=== PATIENT | male | born 1955 | race Caucasian/White ===

== ENCOUNTER 2019-12-03 13:53 | Outpatient (CLI) | payer MEDICARE ==
[2019-12-03 14:26] LABS: Prothrombin Time 13.6 sec (12.0-14.7)
== END 2019-12-03 13:54 | disposition home or self-care (01) ==
LOC: MADLAB 13:53
PROVIDERS: ATTEND Internal Medicine Hematology & Oncology
DX: I48.91 Unspecified atrial fibrillation (principal)
CPT/HCPCS: 36415; 85610

== ENCOUNTER 2019-12-10 12:56 | Outpatient (CLI) | payer MEDICARE ==
[2019-12-10 13:23] LABS: Prothrombin Time 22.5 sec (12.0-14.7)
== END 2019-12-10 12:57 | disposition home or self-care (01) ==
LOC: MADLAB 12:56
PROVIDERS: ATTEND Internal Medicine Hematology & Oncology
DX: I48.91 Unspecified atrial fibrillation (principal)
CPT/HCPCS: 36415; 85610

== ENCOUNTER 2019-12-17 14:22 | Outpatient (CLI) | payer MEDICARE ==
[2019-12-17 14:51] LABS: Prothrombin Time 22.6 sec (12.0-14.7)
== END 2019-12-17 14:23 | disposition home or self-care (01) ==
LOC: MADLABBHPM 14:22
PROVIDERS: ATTEND Internal Medicine Hematology & Oncology
DX: I48.91 Unspecified atrial fibrillation (principal)
CPT/HCPCS: 36415; 85610

== ENCOUNTER 2019-12-24 13:28 | Outpatient (CLI) | payer MEDICARE ==
[2019-12-24 13:51] LABS: INR-International Normal Ratio 1.6; Prothrombin Time 19.1 sec (12.0-14.7)
== END 2019-12-24 13:29 | disposition home or self-care (01) ==
LOC: MADLAB 13:28
PROVIDERS: ATTEND Internal Medicine Hematology & Oncology
DX: I48.91 Unspecified atrial fibrillation (principal)
CPT/HCPCS: 36415; 85610

== ENCOUNTER 2020-01-07 11:39 | Outpatient (CLI) | payer MEDICARE ==
[2020-01-07 12:10] LABS: INR-International Normal Ratio 1.4; Prothrombin Time 17.2 sec (12.0-14.7)
== END 2020-01-07 11:40 | disposition home or self-care (01) ==
LOC: MADLAB 11:39
PROVIDERS: ATTEND Internal Medicine Hematology & Oncology
DX: I48.91 Unspecified atrial fibrillation (principal)
CPT/HCPCS: 36415; 85610

== ENCOUNTER 2020-01-21 13:24 | Outpatient (CLI) | payer MEDICARE ==
[2020-01-21 14:02] LABS: INR-International Normal Ratio 2.1; Prothrombin Time 23.1 sec (12.0-14.7)
== END 2020-01-21 13:25 | disposition home or self-care (01) ==
LOC: MADLAB 13:24
PROVIDERS: ATTEND Internal Medicine Hematology & Oncology
DX: I48.91 Unspecified atrial fibrillation (principal)
CPT/HCPCS: 36415; 85610

== ENCOUNTER 2020-02-04 14:04 | Outpatient (CLI) | payer MEDICARE ==
[2020-02-04 14:36] LABS: INR-International Normal Ratio 1.7; Prothrombin Time 19.8 sec (12.0-14.7)
== END 2020-02-04 14:05 | disposition home or self-care (01) ==
LOC: MADLAB 14:04
PROVIDERS: ATTEND Internal Medicine Hematology & Oncology
DX: I48.91 Unspecified atrial fibrillation (principal)
CPT/HCPCS: 36415; 85610

== ENCOUNTER 2020-02-18 13:49 | Outpatient (CLI) | payer MEDICARE ==
[2020-02-18 14:17] LABS: INR-International Normal Ratio 2.2; Prothrombin Time 24.4 sec (12.0-14.7)
== END 2020-02-18 13:50 | disposition home or self-care (01) ==
LOC: MADLAB 13:49
PROVIDERS: ATTEND Internal Medicine Hematology & Oncology
DX: I48.91 Unspecified atrial fibrillation (principal)
CPT/HCPCS: 36415; 85610

== ENCOUNTER 2020-02-28 08:58 | Emergency (ER) | payer MEDICARE ==
[~2020-02-28 08:58] MED LIST: Norepinephrine 4 MG/4 ML VIAL ONE
[2020-02-28 10:24] LABS: ALT (SGPT) 47 U/L (8-55); AST (SGOT) 47 U/L (5-34); Albumin 3.8 g/dL (3.4-4.8); Alkaline Phosphatase 63 U/L (40-110); Anion Gap 19 mmol/L (10-20); BUN (Urea Nitrogen) 23 mg/dL (8.4-25.7); Bilirubin, Total 1.2 mg/dL (0.2-1.2); Calc. Creatinine Clearance 0 mL/min (70-130); Calcium 8.7 mg/dL (7.8-10.44); Carbon Dioxide 20 mmol/L (23-31); Chloride 98 mmol/L (98-107); Estimated GFR-MDRD 50; Globulin 3.3 g/dL (2.4-3.5); Glucose 216 mg/dL (80-115); Potassium 3.8 mmol/L (3.5-5.1); Protein, Total 7.1 g/dL (5.8-8.1); Sodium 133 mmol/L (136-145)
[2020-02-28 10:31] LABS: Hemoglobin 14.9 g/dL (14.0-18.0); Mean Corpuscular HGB CONC 31.9 g/dL (32.0-36.0); Mean Corpuscular Hemoglobin 29.9 pg (27.0-31.0); Mean Corpuscular Volume 93.6 fL (78.0-98.0); Mean Platelet Volume 6.5 fL (7.4-10.4); Platelet Count 221 thou/uL (130-400); RBC Distribution Width 12.5 % (11.5-14.5); Red Blood Cell (RBC) Count 4.99 mill/uL (4.70-6.10)
[2020-02-28 10:32] LABS: Band 11 % (5-11); Lymphocytes 6 % (21-51); MDiff Complete? YES; Monocytes 1 % (0-10); Neutrophil 78 % (42-75); Platelet Morphology Comment Appears Adequate; RBC Morphology Normal; Reactive Lymphocytes 4 % (0-10)
[2020-02-28] MEDS ORDERED: Sodium Chloride 0.9% 2,000 ML ONE (10:41)
[2020-02-28] MEDS ORDERED: Cefepime 2 GM VIAL ONE (10:41)
[2020-02-28] MEDS ORDERED: Sodium Chloride 0.9% 250 ML 500 ML ONE (10:43)
[2020-02-28] MEDS ORDERED: Sodium Chloride 0.9% 100 ML ONE (10:43)
[2020-02-28] MEDS ORDERED: Lactated Ringer's 1,000 ML ONE (12:10)
[2020-02-28] MEDS ORDERED: Norepinephrine 4 MG/4 ML VIAL ONE (13:03)
[2020-02-28] MEDS ORDERED: Lidocaine 1% w/Epinephrine 1:100K 20 ML VIAL ONE (13:21)
== END 2020-02-28 13:43 | disposition short-term general hospital (02) ==
LOC: MADERS 08:58
DX: A41.9 Sepsis, unspecified organism (principal); L03.115 Cellulitis of right lower limb; E66.9 Obesity, unspecified; I48.91 Unspecified atrial fibrillation; E11.40 Type 2 diabetes mellitus with diabetic neuropathy, unspecified; E78.5 Hyperlipidemia, unspecified; I10 Essential (primary) hypertension; Z79.01 Long term (current) use of anticoagulants; Z79.82 Long term (current) use of aspirin; Z79.84 Long term (current) use of oral hypoglycemic drugs; Z79.899 Other long term (current) drug therapy
CPT/HCPCS: 36415; 36416; 36556; 80053; 83605; 84484; 85025; 86140; 87040; 93005; 96365; 96366; 96367; 96375; 99292; J0692; J3370; J3490; J7050; J7070; J7120

== ENCOUNTER 2020-03-08 13:34 | Outpatient (CLI) | payer MEDICARE ==
[2020-03-08 13:44] LABS: #Basophils 0.1 thou/uL (0.0-0.2); #Eosinphils 0.2 thou/uL (0.0-0.7); #Lymphocytes 2.3 thou/uL (1.20-3.40); #Monocytes 0.8 thou/uL (0.11-0.59); #Neutrophils 8.6 thou/uL (1.40-6.50); %Basophils 0.7 % (0.0-1.0); %Eosinophils 1.7 % (0.0-10.0); %Lymphocytes 19.3 % (21.0-51.0); %Monocytes 6.5 % (0.0-10.0); %Neutrophils 71.9 % (42.0-75.0); Hemoglobin 12.8 g/dL (14.0-18.0); Mean Corpuscular Hemoglobin 29.7 pg (27.0-31.0); Mean Corpuscular Volume 95.8 fL (78.0-98.0); Platelet Count 384 thou/uL (130-400); RBC Distribution Width 12.8 % (11.5-14.5); Red Blood Cell (RBC) Count 4.32 mill/uL (4.70-6.10); White Blood Cell (WBC) Count 11.9 thou/uL (4.8-10.8)
[2020-03-08 13:56] LABS: ALT (SGPT) 24 U/L (8-55); AST (SGOT) 22 U/L (5-34); Alkaline Phosphatase 122 U/L (40-110); Anion Gap 12 mmol/L (10-20); BUN (Urea Nitrogen) 19 mg/dL (8.4-25.7); Bilirubin, Total 0.6 mg/dL (0.2-1.2); CRP (Inflammatory) 2.03 mg/dL (= or < 0.5); Calc. Creatinine Clearance 0 mL/min (70-130); Calcium 8.2 mg/dL (7.8-10.44); Carbon Dioxide 28 mmol/L (23-31); Chloride 101 mmol/L (98-107); Estimated GFR-MDRD 90; Glucose 135 mg/dL (80-115); Potassium 4.2 mmol/L (3.5-5.1); Sodium 137 mmol/L (136-145)
== END 2020-03-08 13:35 | disposition home or self-care (01) ==
LOC: MADLABSP 13:34
DX: L03.116 Cellulitis of left lower limb (principal); I48.91 Unspecified atrial fibrillation
CPT/HCPCS: 80053; 85025; 86140

== ENCOUNTER 2020-03-10 13:37 | Outpatient (CLI) | payer MEDICARE ==
[2020-03-10 14:01] LABS: INR-International Normal Ratio 1.8; Prothrombin Time 20.7 sec (12.0-14.7)
== END 2020-03-10 13:38 | disposition home or self-care (01) ==
LOC: MADLABSP 13:37
PROVIDERS: ATTEND Student in an Organized Health Care Education/Training Program
DX: Z47.81 Encounter for orthopedic aftercare following surgical amputation (principal)
CPT/HCPCS: 85610

== ENCOUNTER 2020-03-15 16:57 | Outpatient (CLI) | payer MEDICARE ==
[2020-03-15 17:04] LABS: #Basophils 0.1 thou/uL (0.0-0.2); #Eosinphils 0.2 thou/uL (0.0-0.7); #Lymphocytes 2.7 thou/uL (1.20-3.40); #Monocytes 0.4 thou/uL (0.11-0.59); #Neutrophils 5.5 thou/uL (1.40-6.50); %Eosinophils 2.5 % (0.0-10.0); %Lymphocytes 30.4 % (21.0-51.0); %Monocytes 4.2 % (0.0-10.0); %Neutrophils 61.9 % (42.0-75.0); Hemoglobin 14.1 g/dL (14.0-18.0); Mean Corpuscular HGB CONC 30.7 g/dL (32.0-36.0); Mean Corpuscular Hemoglobin 29.4 pg (27.0-31.0); Mean Corpuscular Volume 95.9 fL (78.0-98.0); Mean Platelet Volume 6.2 fL (7.4-10.4); Platelet Count 467 thou/uL (130-400); RBC Distribution Width 13.1 % (11.5-14.5); Red Blood Cell (RBC) Count 4.78 mill/uL (4.70-6.10); White Blood Cell (WBC) Count 8.9 thou/uL (4.8-10.8)
[2020-03-15 17:18] LABS: ALT (SGPT) 27 U/L (8-55); AST (SGOT) 52 U/L (5-34); Albumin 3.8 g/dL (3.4-4.8); Alkaline Phosphatase 117 U/L (40-110); Anion Gap 19 mmol/L (10-20); BUN (Urea Nitrogen) 28 mg/dL (8.4-25.7); Bilirubin, Total 0.3 mg/dL (0.2-1.2); CRP (Inflammatory) 0.69 mg/dL (= or < 0.5); Calc. Creatinine Clearance 0 mL/min (70-130); Calcium 9.2 mg/dL (7.8-10.44); Carbon Dioxide 26 mmol/L (23-31); Chloride 100 mmol/L (98-107); Globulin 3.8 g/dL (2.4-3.5); Glucose 101 mg/dL (80-115); Potassium 4.7 mmol/L (3.5-5.1); Protein, Total 7.6 g/dL (5.8-8.1); Sodium 140 mmol/L (136-145)
== END 2020-03-15 16:58 | disposition home or self-care (01) ==
LOC: MADLAB 16:57
PROVIDERS: ATTEND Nurse Practitioner Family
DX: L03.116 Cellulitis of left lower limb (principal); I48.91 Unspecified atrial fibrillation
CPT/HCPCS: 80053; 85025; 86140

== ENCOUNTER 2020-03-22 19:44 | Outpatient (CLI) | payer MEDICARE ==
[2020-03-22 21:28] LABS: #Basophils 0.1 thou/uL (0.0-0.2); #Eosinphils 0.5 thou/uL (0.0-0.7); #Lymphocytes 2.4 thou/uL (1.20-3.40); #Monocytes 0.7 thou/uL (0.11-0.59); #Neutrophils 3.5 thou/uL (1.40-6.50); %Basophils 1.6 % (0.0-1.0); %Eosinophils 6.6 % (0.0-10.0); %Lymphocytes 33.5 % (21.0-51.0); %Monocytes 9.2 % (0.0-10.0); Hemoglobin 15.1 g/dL (14.0-18.0); Mean Corpuscular HGB CONC 30.8 g/dL (32.0-36.0); Mean Corpuscular Hemoglobin 29.5 pg (27.0-31.0); Mean Corpuscular Volume 95.8 fL (78.0-98.0); Mean Platelet Volume 6.2 fL (7.4-10.4); Platelet Count 303 thou/uL (130-400); RBC Distribution Width 12.7 % (11.5-14.5); Red Blood Cell (RBC) Count 5.13 mill/uL (4.70-6.10); White Blood Cell (WBC) Count 7.1 thou/uL (4.8-10.8)
[2020-03-22 21:34] LABS: ALT (SGPT) 18 U/L (8-55); AST (SGOT) 37 U/L (5-34); Albumin 4.1 g/dL (3.4-4.8); Alkaline Phosphatase 99 U/L (40-110); Anion Gap 18 mmol/L (10-20); BUN (Urea Nitrogen) 31 mg/dL (8.4-25.7); Bilirubin, Total 0.3 mg/dL (0.2-1.2); CRP (Inflammatory) Less than 0.50 mg/dL (= or < 0.5); Calc. Creatinine Clearance 0 mL/min (70-130); Calcium 9.4 mg/dL (7.8-10.44); Carbon Dioxide 23 mmol/L (23-31); Chloride 99 mmol/L (98-107); Estimated GFR-MDRD 76; Glucose 136 mg/dL (80-115); Potassium 4.4 mmol/L (3.5-5.1); Protein, Total 8.1 g/dL (5.8-8.1); Sodium 136 mmol/L (136-145)
== END 2020-03-22 19:45 | disposition home or self-care (01) ==
LOC: MADLAB 19:44
PROVIDERS: ATTEND Internal Medicine Hematology & Oncology
DX: L03.116 Cellulitis of left lower limb (principal)
CPT/HCPCS: 80053; 85025; 86140

== ENCOUNTER 2020-03-24 15:12 | Outpatient (CLI) | payer MEDICARE ==
[2020-03-24 15:23] LABS: INR-International Normal Ratio 1.3; Prothrombin Time 16.4 sec (12.0-14.7)
== END 2020-03-24 15:13 | disposition home or self-care (01) ==
LOC: MADLAB 15:12
DX: L03.116 Cellulitis of left lower limb (principal); I48.91 Unspecified atrial fibrillation
CPT/HCPCS: 85610

== ENCOUNTER 2020-03-31 13:20 | Outpatient (CLI) | payer MEDICARE ==
[2020-03-31 13:31] LABS: INR-International Normal Ratio 1.9; Prothrombin Time 21.6 sec (12.0-14.7)
== END 2020-03-31 13:21 | disposition home or self-care (01) ==
LOC: MADLABSP 13:20
PROVIDERS: ATTEND Internal Medicine
DX: L03.116 Cellulitis of left lower limb (principal)
CPT/HCPCS: 85610

== ENCOUNTER 2020-04-14 14:42 | Outpatient (CLI) | payer MEDICARE ==
[2020-04-14 14:58] LABS: INR-International Normal Ratio 2.5; Prothrombin Time 26.8 sec (12.0-14.7)
== END 2020-04-14 14:43 | disposition home or self-care (01) ==
LOC: MADLAB 14:42
PROVIDERS: ATTEND Internal Medicine
DX: L03.116 Cellulitis of left lower limb (principal); I48.91 Unspecified atrial fibrillation
CPT/HCPCS: 85610

== ENCOUNTER 2020-04-22 18:49 | Emergency (ER) | payer MEDICARE ==
[2020-04-22] MEDS ORDERED: Lidocaine 1% 20 ML MDV ONE ×2 (19:33→19:41)
[2020-04-22] MEDS ORDERED: Lidocaine 1% w/Epinephrine 1:100K 20 ML VIAL ONE (19:33)
[2020-04-22] MEDS ORDERED: Boostrix 0.5 ML VIAL ONE (20:06)
[2020-04-22] MEDS ORDERED: Sterile Water Irrigation 250 ML BOT ONE (20:51)
== END 2020-04-22 20:51 | disposition home or self-care (01) ==
LOC: MADERS 18:49
DX: S01.111A Laceration without foreign body of right eyelid and periocular area, initial encounter (principal); E66.9 Obesity, unspecified; I48.91 Unspecified atrial fibrillation; E78.5 Hyperlipidemia, unspecified; I10 Essential (primary) hypertension; E11.9 Type 2 diabetes mellitus without complications; Z23 Encounter for immunization; Z79.84 Long term (current) use of oral hypoglycemic drugs; Z79.01 Long term (current) use of anticoagulants; Z79.899 Other long term (current) drug therapy; W22.8XXA Striking against or struck by other objects, initial encounter
CPT/HCPCS: 12013; 90471; 90715

== ENCOUNTER 2020-04-28 13:27 | Outpatient (CLI) | payer MEDICARE ==
[2020-04-28 13:47] LABS: INR-International Normal Ratio 2.1; Prothrombin Time 24.4 sec (12.0-14.7)
== END 2020-04-28 13:28 | disposition home or self-care (01) ==
LOC: MADLAB 13:27
PROVIDERS: ATTEND Nurse Practitioner Acute Care
DX: I48.91 Unspecified atrial fibrillation (principal)
CPT/HCPCS: 36415; 85610

== ENCOUNTER 2020-05-19 13:12 | Outpatient (CLI) | payer MEDICARE ==
[2020-05-19 13:41] LABS: INR-International Normal Ratio 2.3; Prothrombin Time 25.4 sec (12.0-14.7)
== END 2020-05-19 13:13 | disposition home or self-care (01) ==
LOC: MADLAB 13:12
PROVIDERS: ATTEND Nurse Practitioner Acute Care
DX: I48.21 Permanent atrial fibrillation (principal)
CPT/HCPCS: 36415; 85610

== ENCOUNTER 2020-06-16 13:20 | Outpatient (CLI) | payer MEDICARE ==
[2020-06-16 13:46] LABS: INR-International Normal Ratio 1.9; Prothrombin Time 22.4 sec (12.0-14.7)
== END 2020-06-16 13:21 | disposition home or self-care (01) ==
LOC: MADLAB 13:20
PROVIDERS: ATTEND Internal Medicine Hematology & Oncology
DX: I48.91 Unspecified atrial fibrillation (principal)
CPT/HCPCS: 36415; 85610

== ENCOUNTER 2020-07-07 14:54 | Outpatient (CLI) | payer MEDICARE ==
[2020-07-07 15:14] LABS: INR-International Normal Ratio 1.7
== END 2020-07-07 14:55 | disposition home or self-care (01) ==
LOC: MADLAB 14:54
PROVIDERS: ATTEND Nurse Practitioner Acute Care
DX: I48.91 Unspecified atrial fibrillation (principal)
CPT/HCPCS: 36415; 85610

== ENCOUNTER 2020-08-09 14:10 | Outpatient (CLI) | payer MEDICARE ==
[2020-08-09 14:45] LABS: Prothrombin Time 22.9 sec (12.0-14.7)
== END 2020-08-09 14:11 | disposition home or self-care (01) ==
LOC: MADLAB 14:10
DX: I48.91 Unspecified atrial fibrillation (principal)
CPT/HCPCS: 36415; 85610

== ENCOUNTER 2020-08-23 14:28 | Outpatient (CLI) | payer MEDICARE ==
[2020-08-23 15:01] LABS: INR-International Normal Ratio 1.8; Prothrombin Time 21.5 sec (12.0-14.7)
== END 2020-08-23 14:29 | disposition home or self-care (01) ==
LOC: MADLAB 14:28
PROVIDERS: ATTEND Nurse Practitioner Acute Care
DX: I48.91 Unspecified atrial fibrillation (principal)
CPT/HCPCS: 85610

== ENCOUNTER 2020-09-06 11:28 | Outpatient (CLI) | payer MEDICARE ==
[2020-09-06 11:59] LABS: #Basophils 0.1 thou/uL (0.0-0.2); #Eosinphils 0.4 thou/uL (0.0-0.7); #Lymphocytes 1.9 thou/uL (1.20-3.40); #Monocytes 0.5 thou/uL (0.11-0.59); #Neutrophils 3.1 thou/uL (1.40-6.50); %Basophils 2.2 % (0.0-1.0); %Eosinophils 6.6 % (0.0-10.0); %Lymphocytes 30.7 % (21.0-51.0); %Monocytes 8.6 % (0.0-10.0); %Neutrophils 51.9 % (42.0-75.0); Hemoglobin 16.6 g/dL (14.0-18.0); Mean Corpuscular HGB CONC 31.4 g/dL (32.0-36.0); Mean Corpuscular Hemoglobin 29.6 pg (27.0-31.0); Mean Corpuscular Volume 94.4 fL (78.0-98.0); Mean Platelet Volume 6.8 fL (7.4-10.4); Platelet Count 194 thou/uL (130-400); White Blood Cell (WBC) Count 6.1 thou/uL (4.8-10.8)
[2020-09-06 12:03] LABS: INR-International Normal Ratio 2.2; Prothrombin Time 24.7 sec (12.0-14.7)
[2020-09-06 12:14] LABS: ALT (SGPT) 27 U/L (8-55); AST (SGOT) 27 U/L (5-34); Alkaline Phosphatase 83 U/L (40-110); Anion Gap 13 mmol/L (10-20); BUN (Urea Nitrogen) 21 mg/dL (8.4-25.7); Bilirubin, Total 0.6 mg/dL (0.2-1.2); Calc. Creatinine Clearance 0 mL/min (70-130); Calcium 9.3 mg/dL (7.8-10.44); Carbon Dioxide 28 mmol/L (23-31); Cardiac Risk 3.1 (Less than 4.5); Chloride 105 mmol/L (98-107); Cholesterol 147 mg/dl (< 200 Desired); Globulin 3.4 g/dL (2.4-3.5); Glucose 133 mg/dL (80-115); HDL Cholesterol 48 mg/dL (>60 Neg Risk); LDL Cholesterol, Calculated 81 mg/dL; Potassium 4.1 mmol/L (3.5-5.1); Protein, Total 7.4 g/dL (5.8-8.1); Sodium 142 mmol/L (136-145); Triglycerides 91 mg/dL (Less than 150)
[2020-09-06 16:55] LABS: Hemoglobin A1c 6.9 % (4.0-6.0)
== END 2020-09-06 11:29 | disposition home or self-care (01) ==
LOC: MADLAB 11:28
PROVIDERS: ATTEND Nurse Practitioner Acute Care
DX: I48.91 Unspecified atrial fibrillation (principal); I10 Essential (primary) hypertension; Z79.4 Long term (current) use of insulin
CPT/HCPCS: 36415; 80053; 80061; 83036; 85025; 85610

== ENCOUNTER 2020-10-13 17:58 | Outpatient (CLI) | payer MEDICARE ==
[2020-10-13 18:06] LABS: INR-International Normal Ratio 2.5; Prothrombin Time 27.2 sec (12.0-14.7)
== END 2020-10-13 17:59 | disposition home or self-care (01) ==
LOC: MADLAB 17:58
PROVIDERS: ATTEND Nurse Practitioner Acute Care
DX: I48.91 Unspecified atrial fibrillation (principal)
CPT/HCPCS: 36415; 85610

== ENCOUNTER 2020-11-10 13:35 | Outpatient (CLI) | payer MEDICARE ==
[2020-11-10 13:58] LABS: INR-International Normal Ratio 1.7; Prothrombin Time 19.9 sec (12.0-14.7)
== END 2020-11-10 13:36 | disposition home or self-care (01) ==
LOC: MADLAB 13:35
PROVIDERS: ATTEND Nurse Practitioner Acute Care
DX: I48.91 Unspecified atrial fibrillation (principal)
CPT/HCPCS: 85610

== ENCOUNTER 2020-11-24 14:05 | Outpatient (CLI) | payer MEDICARE ==
[2020-11-24 14:26] LABS: INR-International Normal Ratio 1.7; Prothrombin Time 20.7 sec (12.0-14.7)
== END 2020-11-24 14:06 | disposition home or self-care (01) ==
LOC: MADLAB 14:05
PROVIDERS: ATTEND Nurse Practitioner Acute Care
DX: I48.91 Unspecified atrial fibrillation (principal)
CPT/HCPCS: 36415; 85610

== ENCOUNTER 2020-12-15 13:14 | Outpatient (CLI) | payer MEDICARE ==
[2020-12-15 13:37] LABS: INR-International Normal Ratio 1.6; Prothrombin Time 19.5 sec (12.0-14.7)
== END 2020-12-15 13:15 | disposition home or self-care (01) ==
LOC: MADLAB 13:14
PROVIDERS: ATTEND Internal Medicine Hematology & Oncology
DX: I48.91 Unspecified atrial fibrillation (principal)
CPT/HCPCS: 36415; 85610

== ENCOUNTER 2020-12-27 10:23 | Outpatient (CLI) | payer MEDICARE ==
[2020-12-27 10:46] LABS: INR-International Normal Ratio 2.1; Prothrombin Time 23.7 sec (12.0-14.7)
== END 2020-12-27 10:24 | disposition home or self-care (01) ==
LOC: MADLAB 10:23
PROVIDERS: ATTEND Internal Medicine Hematology & Oncology
DX: I48.91 Unspecified atrial fibrillation (principal)
CPT/HCPCS: 36415; 85610

== ENCOUNTER 2021-01-12 14:19 | Outpatient (CLI) | payer MEDICARE ==
[2021-01-12 14:48] LABS: INR-International Normal Ratio 2.6; Prothrombin Time 28.6 sec (12.0-14.7)
== END 2021-01-12 14:20 | disposition home or self-care (01) ==
LOC: MADLAB 14:19
PROVIDERS: ATTEND Internal Medicine Hematology & Oncology
DX: I48.91 Unspecified atrial fibrillation (principal)
CPT/HCPCS: 36415; 85610

== ENCOUNTER 2021-02-02 15:05 | Outpatient (CLI) | payer MEDICARE ==
[2021-02-02 15:28] LABS: INR-International Normal Ratio 2.2; Prothrombin Time 24.7 sec (12.0-14.7)
== END 2021-02-02 15:06 | disposition home or self-care (01) ==
LOC: MADLAB 15:05
DX: I48.21 Permanent atrial fibrillation (principal)
CPT/HCPCS: 36415; 85610

== ENCOUNTER 2021-03-01 14:19 | Outpatient (CLI) | payer MEDICARE ==
[2021-03-01 14:45] LABS: INR-International Normal Ratio 3.2; Prothrombin Time 32.8 sec (12.0-14.7)
== END 2021-03-01 14:20 | disposition home or self-care (01) ==
LOC: MADLAB 14:19
PROVIDERS: ATTEND Internal Medicine Cardiovascular Disease
DX: I48.91 Unspecified atrial fibrillation (principal)
CPT/HCPCS: 36415; 85610

== ENCOUNTER 2021-03-05 20:59 | Emergency (ER) | payer MEDICARE ==
[2021-03-05] MEDS ORDERED: Sterile Water 100 ML ONE (21:39)
[2021-03-05] MEDS ORDERED: Lidocaine 1% w/Epinephrine 1:100K 20 ML VIAL ONE (21:39)
== END 2021-03-05 22:50 | disposition home or self-care (01) ==
LOC: MADERS 20:59
DX: S61.215A Laceration without foreign body of left ring finger without damage to nail, initial encounter (principal); E11.40 Type 2 diabetes mellitus with diabetic neuropathy, unspecified; E78.5 Hyperlipidemia, unspecified; I10 Essential (primary) hypertension; E66.9 Obesity, unspecified; I48.91 Unspecified atrial fibrillation; Z79.01 Long term (current) use of anticoagulants; Z79.899 Other long term (current) drug therapy; Z79.84 Long term (current) use of oral hypoglycemic drugs; W17.2XXA Fall into hole, initial encounter
CPT/HCPCS: 12001

== ENCOUNTER 2021-03-15 14:36 | Outpatient (CLI) | payer MEDICARE ==
[2021-03-15 14:56] LABS: INR-International Normal Ratio 2.7; Prothrombin Time 28.8 sec (12.0-14.7)
== END 2021-03-15 14:37 | disposition home or self-care (01) ==
LOC: MADLAB 14:36
PROVIDERS: ATTEND Internal Medicine Cardiovascular Disease
DX: I48.21 Permanent atrial fibrillation (principal)
CPT/HCPCS: 36415; 85610

== ENCOUNTER 2021-04-13 14:08 | Outpatient (CLI) | payer MEDICARE ==
[2021-04-13 14:27] LABS: INR-International Normal Ratio 2.3; Prothrombin Time 25.8 sec (12.0-14.7)
== END 2021-04-13 14:09 | disposition home or self-care (01) ==
LOC: MADLAB 14:08
PROVIDERS: ATTEND Internal Medicine Cardiovascular Disease
DX: I48.21 Permanent atrial fibrillation (principal)
CPT/HCPCS: 36415; 85610

== ENCOUNTER 2021-04-26 14:00 | Outpatient (CLI) | payer MEDICARE ==
[2021-04-26 14:37] LABS: Prothrombin Time 29.8 sec (12.0-14.7)
[2021-04-26 14:38] LABS: INR-International Normal Ratio 2.8
== END 2021-04-26 14:01 | disposition home or self-care (01) ==
LOC: MADLAB 14:00
PROVIDERS: ATTEND Internal Medicine Cardiovascular Disease
DX: I48.21 Permanent atrial fibrillation (principal)
CPT/HCPCS: 36415; 85610

== ENCOUNTER 2021-05-17 12:24 | Outpatient (CLI) | payer MEDICARE ==
[2021-05-17 12:41] LABS: INR-International Normal Ratio 2.9; Prothrombin Time 30.6 sec (12.0-14.7)
== END 2021-05-17 12:25 | disposition home or self-care (01) ==
LOC: MADLAB 12:24
PROVIDERS: ATTEND Internal Medicine Cardiovascular Disease
DX: I48.21 Permanent atrial fibrillation (principal)
CPT/HCPCS: 36415; 85610

== ENCOUNTER 2021-06-14 14:07 | Outpatient (CLI) | payer MEDICARE ==
[2021-06-14 14:44] LABS: INR-International Normal Ratio 3.4; Prothrombin Time 35.5 sec (12.0-14.7)
== END 2021-06-14 14:08 | disposition home or self-care (01) ==
LOC: MADLAB 14:07
PROVIDERS: ATTEND Internal Medicine Cardiovascular Disease
DX: I48.21 Permanent atrial fibrillation (principal)
CPT/HCPCS: 36415; 85610

== ENCOUNTER 2021-06-28 14:57 | Outpatient (CLI) | payer MEDICARE ==
[2021-06-28 16:00] LABS: INR-International Normal Ratio 2.2
== END 2021-06-28 14:58 | disposition home or self-care (01) ==
LOC: MADLAB 14:57
PROVIDERS: ATTEND Internal Medicine Cardiovascular Disease
DX: I48.21 Permanent atrial fibrillation (principal)
CPT/HCPCS: 36415; 85610

== ENCOUNTER 2021-07-12 13:10 | Outpatient (CLI) | payer MEDICARE ==
[2021-07-12 14:01] LABS: INR-International Normal Ratio 7.5
[2021-07-12 14:02] LABS: Prothrombin Time 65.5 sec (12.0-14.7)
== END 2021-07-12 13:11 | disposition home or self-care (01) ==
LOC: MADLAB 13:10
PROVIDERS: ATTEND Internal Medicine Cardiovascular Disease
DX: I48.21 Permanent atrial fibrillation (principal)
CPT/HCPCS: 36415; 85610

== ENCOUNTER 2021-07-27 13:48 | Outpatient (CLI) | payer MEDICARE ==
[2021-07-27 14:37] LABS: INR-International Normal Ratio 2.3; Prothrombin Time 25.6 sec (12.0-14.7)
== END 2021-07-27 13:49 | disposition home or self-care (01) ==
LOC: MADLAB 13:48
PROVIDERS: ATTEND Internal Medicine Cardiovascular Disease
DX: I48.21 Permanent atrial fibrillation (principal)
CPT/HCPCS: 36415; 85610

== ENCOUNTER 2021-08-10 14:22 | Outpatient (CLI) | payer MEDICARE ==
[2021-08-10 14:48] LABS: Prothrombin Time 23.3 sec (12.0-14.7)
== END 2021-08-10 14:23 | disposition home or self-care (01) ==
LOC: MADLAB 14:22
PROVIDERS: ATTEND Internal Medicine Cardiovascular Disease
DX: I48.21 Permanent atrial fibrillation (principal)
CPT/HCPCS: 36415; 85610

== ENCOUNTER 2021-08-31 13:18 | Outpatient (CLI) | payer MEDICARE ==
[2021-08-31 13:45] LABS: Prothrombin Time 22.9 sec (12.0-14.7)
== END 2021-08-31 13:19 | disposition home or self-care (01) ==
LOC: MADLAB 13:18
PROVIDERS: ATTEND Internal Medicine Cardiovascular Disease
DX: I48.21 Permanent atrial fibrillation (principal)
CPT/HCPCS: 36415; 85610

== ENCOUNTER 2021-10-26 14:48 | Outpatient (CLI) | payer MEDICARE ==
[2021-10-26 15:12] LABS: INR-International Normal Ratio 2.2; Prothrombin Time 24.4 sec (12.0-14.7)
== END 2021-10-26 14:49 | disposition home or self-care (01) ==
LOC: MADLAB 14:48
PROVIDERS: ATTEND Internal Medicine Cardiovascular Disease
DX: I48.21 Permanent atrial fibrillation (principal)
CPT/HCPCS: 36415; 85610

== ENCOUNTER 2021-11-24 15:01 | Outpatient (CLI) | payer MEDICARE ==
[2021-11-24 15:41] LABS: INR-International Normal Ratio 2.1; Prothrombin Time 23.6 sec (12.0-14.7)
== END 2021-11-24 15:02 | disposition home or self-care (01) ==
LOC: MADLAB 15:01
PROVIDERS: ATTEND Internal Medicine Cardiovascular Disease
DX: I48.21 Permanent atrial fibrillation (principal)
CPT/HCPCS: 36415; 85610

== ENCOUNTER 2021-12-22 10:11 | Outpatient (CLI) | payer MEDICARE ==
[2021-12-22 10:56] LABS: INR-International Normal Ratio 2.5; Prothrombin Time 27.5 sec (12.0-14.7)
== END 2021-12-22 10:12 | disposition home or self-care (01) ==
LOC: MADLAB 10:11
PROVIDERS: ATTEND Internal Medicine Cardiovascular Disease
DX: I48.21 Permanent atrial fibrillation (principal)
CPT/HCPCS: 36415; 85610

== ENCOUNTER 2022-01-18 13:42 | Outpatient (CLI) | payer MEDICARE ==
[2022-01-18 14:15] LABS: INR-International Normal Ratio 1.9; Prothrombin Time 22.5 sec (12.0-14.7)
== END 2022-01-18 13:43 | disposition home or self-care (01) ==
LOC: MADLAB 13:42
PROVIDERS: ATTEND Internal Medicine Cardiovascular Disease
DX: I48.21 Permanent atrial fibrillation (principal)
CPT/HCPCS: 36415; 85610

== ENCOUNTER 2022-01-31 15:49 | Outpatient (CLI) | payer MEDICARE ==
[2022-01-31 16:22] LABS: Prothrombin Time 22.9 sec (12.0-14.7)
== END 2022-01-31 15:50 | disposition home or self-care (01) ==
LOC: MADLAB 15:49
PROVIDERS: ATTEND Internal Medicine Cardiovascular Disease
DX: I48.21 Permanent atrial fibrillation (principal)
CPT/HCPCS: 85610

== ENCOUNTER 2022-02-14 15:48 | Outpatient (CLI) | payer MEDICARE ==
[2022-02-14 16:10] LABS: INR-International Normal Ratio 2.1; Prothrombin Time 23.5 sec (12.0-14.7)
== END 2022-02-14 15:49 | disposition home or self-care (01) ==
LOC: MADLAB 15:48
PROVIDERS: ATTEND Internal Medicine Cardiovascular Disease
DX: I48.21 Permanent atrial fibrillation (principal)
CPT/HCPCS: 36415; 85610

== ENCOUNTER 2022-03-08 14:22 | Emergency (ER) | payer MEDICARE ==
[2022-03-08] MEDS ORDERED: Ibuprofen 800 MG TAB ONE (15:15)
== END 2022-03-08 16:14 | disposition home or self-care (01) ==
LOC: MADERS 14:22
DX: S39.012A Strain of muscle, fascia and tendon of lower back, initial encounter (principal); S33.5XXA Sprain of ligaments of lumbar spine, initial encounter; I48.91 Unspecified atrial fibrillation; E11.40 Type 2 diabetes mellitus with diabetic neuropathy, unspecified; I10 Essential (primary) hypertension; W11.XXXA Fall on and from ladder, initial encounter
CPT/HCPCS: 72131

== ENCOUNTER 2022-04-04 15:03 | Outpatient (CLI) | payer MEDICARE ==
[2022-04-04 15:26] LABS: INR-International Normal Ratio 2.4; Prothrombin Time 26.8 sec (12.0-14.7)
== END 2022-04-04 15:04 | disposition home or self-care (01) ==
LOC: MADLAB 15:03
PROVIDERS: ATTEND Internal Medicine Cardiovascular Disease
DX: I48.21 Permanent atrial fibrillation (principal)
CPT/HCPCS: 36415; 85610

== ENCOUNTER 2022-05-02 14:17 | Outpatient (CLI) | payer MEDICARE ==
[2022-05-02 14:42] LABS: INR-International Normal Ratio 1.9; Prothrombin Time 22.9 sec (12.0-14.7)
== END 2022-05-02 14:18 | disposition home or self-care (01) ==
LOC: MADLAB 14:17
PROVIDERS: ATTEND Internal Medicine Cardiovascular Disease
DX: I48.21 Permanent atrial fibrillation (principal)
CPT/HCPCS: 36415; 85610

== ENCOUNTER 2022-07-01 23:53 | Emergency (ER) | payer OTHER, MEDICARE ==
[2022-07-02] MEDS ORDERED: Lidocaine 1% (PF) 30 ML VIAL ONE (01:23)
== END 2022-07-02 02:18 | disposition home or self-care (01) ==
LOC: MADERS 23:53
DX: S01.01XA Laceration without foreign body of scalp, initial encounter (principal); S09.90XA Unspecified injury of head, initial encounter; E11.9 Type 2 diabetes mellitus without complications; I10 Essential (primary) hypertension; E66.9 Obesity, unspecified; Z79.899 Other long term (current) drug therapy; Z79.84 Long term (current) use of oral hypoglycemic drugs; W01.0XXA Fall on same level from slipping, tripping and stumbling without subsequent striking against object, initial encounter
CPT/HCPCS: 12002; 70450; 72125; J2001

== ENCOUNTER 2022-10-06 14:16 | Emergency (ER) | payer MEDICARE ==
[2022-10-06 18:34] LABS: #Basophils 0.1 thou/uL (0.0-0.2); #Eosinphils 0.2 thou/uL (0.0-0.7); #Lymphocytes 1.8 thou/uL (1.20-3.40); #Monocytes 0.6 thou/uL (0.11-0.59); %Basophils 1.2 % (0.0-1.0); %Eosinophils 2.4 % (0.0-10.0); %Lymphocytes 23.2 % (21.0-51.0); %Monocytes 7.8 % (0.0-10.0); %Neutrophils 65.3 % (42.0-75.0); Hemoglobin 16.7 g/dL (14.0-18.0); Mean Corpuscular HGB CONC 32.3 g/dL (32.0-36.0); Mean Corpuscular Hemoglobin 31.9 pg (27.0-31.0); Mean Corpuscular Volume 98.6 fl (78.0-98.0); Mean Platelet Volume 8.3 fL (7.4-10.4); Platelet Count 240 10x3/uL (130-400); RBC Distribution Width 13.2 % (11.5-14.5); Red Blood Cell (RBC) Count 5.23 mill/uL (4.70-6.10); White Blood Cell (WBC) Count 7.6 10x3/uL (4.8-10.8)
[2022-10-06 18:36] LABS: Bilirubin Negative (Negative); Blood, Urine Negative (Negative); Clarity Clear (Clear); Glucose, Urine (Dipstick) >=1000 mg/dL (Negative); Ketone, Urine Trace mg/dL (Negative); Leukocyte Negative (Negative); Nitrite Negative (Negative); Protein, Urine (Dipstick) Negative (Neg-Trace); Urobilinogen 0.2 mg/dL (Less than 2)
[2022-10-06 18:39] LABS: INR-International Normal Ratio 2.4; Prothrombin Time 27.1 sec (12.0-14.7)
[2022-10-06 18:47] LABS: ALT (SGPT) 23 U/L (8-55); AST (SGOT) 30 U/L (5-34); Albumin 4.2 g/dL (3.4-4.8); Alkaline Phosphatase 85 U/L (40-110); Anion Gap 18 mmol/L (10-20); BUN (Urea Nitrogen) 21 mg/dL (8.4-25.7); Bilirubin, Total 0.6 mg/dL (0.2-1.2); Calc. Creatinine Clearance 0 mL/min (70-130); Calcium 10.2 mg/dL (7.8-10.44); Carbon Dioxide 25 mmol/L (23-31); Chloride 102 mmol/L (98-107); Estimated GFR 84; Globulin 4.3 g/dL (2.4-3.5); Glucose 124 mg/dL (80-115); Magnesium 2.2 mg/dL (1.6-2.6); Potassium 4.5 mmol/L (3.5-5.1); Protein, Total 8.5 g/dL (5.8-8.1)
[2022-10-06 18:52] LABS: Sodium 140 mmol/L (136-145)
== END 2022-10-06 20:17 | disposition home or self-care (01) ==
LOC: MADERS 14:16
DX: E11.9 Type 2 diabetes mellitus without complications (principal); R81 Glycosuria; R20.2 Paresthesia of skin; I10 Essential (primary) hypertension; E66.9 Obesity, unspecified; Z79.84 Long term (current) use of oral hypoglycemic drugs; Z79.82 Long term (current) use of aspirin; Z79.01 Long term (current) use of anticoagulants
CPT/HCPCS: 36415; 70450; 80053; 81003; 83605; 83735; 85025; 85610